=== PATIENT | male | born 1980 | race Two or more races ===

== ENCOUNTER → 2020-12-31 12:30 | Outpatient (BNVA) | payer MEDICARE, MEDICAID, BC, SELFPAY | PROVIDERS: Visit Provider Physician Assistant | DX: E66.9 Obesity, unspecified (principal); F84.0 Autistic disorder; F79 Unspecified intellectual disabilities; Z68.39 Body mass index [BMI] 39.0-39.9, adult | CPT/HCPCS: 99202 ==